=== PATIENT | female | born 1980 | race Caucasian/White ===

== ENCOUNTER 2018-06-13 02:54 | Emergency (ER) | payer OTHER ==
[~2018-06-13] VITALS: Ht 167.6 cm; Wt 95.3 kg
--- NOTE | 2018-06-13 03:10 | NUR ---
Pt. A/Ox4, c/o red rash on bilat. lower extremeties/lower back w/ itchiness and discomfort, no difficulty breathing/swallowing, no SOB, no MCCRACKEN, no CP, states she "picked up a mouse from the house"
--- NOTE | 2018-06-13 03:38 | NUR ---
Patient discharged to home in stable conditon. Written and verbal after care instructions given. Patient verbalizes understanding of instructions. Prescription given for abx treatment, VSS, no acute distress, pt. ambulated out of ED
[2018-06-13 03:45] VITALS: BP 118/86
[2018-06-13] MEDS: SULFAMETH/TRIMETH 800/160 MG TABLET PO ONE (03:46)
== END 2018-06-13 03:47 | disposition home or self-care (01) ==
LOC: ER 02:55
DX: S80.862A Insect bite (nonvenomous), left lower leg, initial encounter (principal); S40.861A Insect bite (nonvenomous) of right upper arm, initial encounter; S30.860A Insect bite (nonvenomous) of lower back and pelvis, initial encounter; L08.9 Local infection of the skin and subcutaneous tissue, unspecified; J45.909 Unspecified asthma, uncomplicated; F17.200 Nicotine dependence, unspecified, uncomplicated; Z88.5 Allergy status to narcotic agent; Z88.8 Allergy status to other drugs, medicaments and biological substances; W57.XXXA Bitten or stung by nonvenomous insect and other nonvenomous arthropods, initial encounter; Y93.89 Activity, other specified; Y92.89 Other specified places as the place of occurrence of the external cause; Y99.8 Other external cause status
CPT/HCPCS: A4663

== ENCOUNTER 2018-06-28 18:20 | Emergency (ER) | payer OTHER ==
[~2018-06-28] VITALS: Ht 170.2 cm; Wt 121.1 kg
[2018-06-28] MEDS ORDERED: TDAP DIPH,PERTUSS,TET VAC/PF 0.5 ML DISP.SYRIN IM ONE ×2 (19:00→19:16)
--- NOTE | 2018-06-28 20:04 | NUR ---
Patient discharged to home in stable conditon. Written and verbal after care instructions given. Patient verbalizes understanding of instructions. Pt. d/c w/ prescriptions per MD order, all belongings w/ pt., left w/ relative
== END 2018-06-28 20:06 | disposition home or self-care (01) ==
LOC: ER 18:22
DX: S80.862A Insect bite (nonvenomous), left lower leg, initial encounter (principal); L08.9 Local infection of the skin and subcutaneous tissue, unspecified; M79.604 Pain in right leg; L25.9 Unspecified contact dermatitis, unspecified cause; J45.909 Unspecified asthma, uncomplicated; F17.200 Nicotine dependence, unspecified, uncomplicated; Z88.5 Allergy status to narcotic agent; Z88.8 Allergy status to other drugs, medicaments and biological substances; W57.XXXA Bitten or stung by nonvenomous insect and other nonvenomous arthropods, initial encounter; Y93.89 Activity, other specified; Y92.89 Other specified places as the place of occurrence of the external cause; Y99.8 Other external cause status
CPT/HCPCS: 73590; 90715; A4663

== ENCOUNTER 2020-03-20 09:16 | Emergency (ER) | payer OTHER ==
[~2020-03-20] VITALS: Ht 170.2 cm; Wt 108.9 kg
--- NOTE | 2020-03-20 09:30 | NUR ---
Dr. Rivera at bedside for MSE
--- NOTE | 2020-03-20 09:40 | NUR ---
Patient discharged to home in stable condition. Written and verbal after care instructions given. Patient verbalizes understanding of instructions. Stressed follow up or return to ER for worsening s/s. Patient ambulated out of ED with steady gait. NAD noted.
[2020-03-20 09:41] VITALS: BP 122/71
== END 2020-03-20 09:40 | disposition home or self-care (01) ==
LOC: ER 09:16
DX: H66.002 Acute suppurative otitis media without spontaneous rupture of ear drum, left ear (principal); F12.20 Cannabis dependence, uncomplicated; F17.290 Nicotine dependence, other tobacco product, uncomplicated; Z88.6 Allergy status to analgesic agent; Z88.8 Allergy status to other drugs, medicaments and biological substances; J45.909 Unspecified asthma, uncomplicated
CPT/HCPCS: A4663

== ENCOUNTER 2020-09-02 11:00 | Emergency (ER) | payer OTHER ==
[~2020-09-02] VITALS: Ht 170.2 cm; Wt 95.3 kg
--- NOTE | 2020-09-02 11:13 | NUR ---
Female [employer] records clerk accompanied female patient for (Dr Gamble).
[2020-09-02 11:17] LABS: *BILIRUBIN,URIN NEGATIVE (NEGATIVE); *BLOOD, URINE NEGATIVE (NEGATIVE); *CLARITY,URINE CLEAR (CLEAR); *COLOR,URINE YELLOW (YELLOW); *KETONES,URINE NEGATIVE (NEGATIVE); *URINE HCG, QUAL NEG (NEGATIVE); *UROBILINOGEN,URINE 0.2 E.U./dl (NORMAL); LEUKOCYTE ESTERASE ,URINE NEGATIVE (NEGATIVE); NITRITE, URINE NEGATIVE (NEGATIVE); PH,URINE 6.5 (5.0-8.0); UGLUCOSE NEGATIVE (NEGATIVE)
[2020-09-02 11:32] VITALS: BP 135/63
--- NOTE | 2020-09-02 11:32 | NUR ---
Patient discharged to home in stable condition. Written and verbal after care instructions given. Patient verbalizes understanding of instructions. Stressed follow up or return to ER for worsening s/s.
== END 2020-09-02 11:32 | disposition home or self-care (01) ==
LOC: ER 11:01
DX: Z03.823 Encounter for observation for suspected inserted (injected) foreign body ruled out (principal); Z88.6 Allergy status to analgesic agent; Z88.8 Allergy status to other drugs, medicaments and biological substances
CPT/HCPCS: 84703; A4663

== ENCOUNTER 2025-04-03 11:04 | Emergency (ER) | payer OTHER ==
[~2025-04-03] VITALS: Ht 165.1 cm; Wt 72.6 kg
[2025-04-03 11:08] VITALS: BP 141/90
[2025-04-03] MEDS: LIDOCAINE HCL 2% 20 ML VIAL TP ONE (11:32)
[2025-04-03 11:55] LABS: CREATININE 0.6 mg/dL (0.6-1.3); SODIUM SERUM 139 mmol/L (136-145); UREA NITROGEN, BLOOD 9 mg/dL (7-18)
[2025-04-03 12:01] LABS: ASPARTATE AMINOTRANSFERASE < 5 U/L (15-37); TOTAL PROTEIN, SERUM 7.8 g/dL (6.4-8.2)
[2025-04-03 12:07] LABS: PLATELET COUNT (AUTO) 437 K/uL (179-408); RED BLOOD CELL COUNT(AUTO) 4.15 MIL/uL (3.63-4.92); RED CELL DISTRIBUTION WIDTH 16.2 % (12.3-17.7); WHITE BLOOD COUNT (AUTO) 8.4 K/uL (3.8-11.8)
[2025-04-03 12:19] LABS: *BILIRUBIN,URIN NEGATIVE (NEGATIVE); *BLOOD, URINE NEGATIVE (NEGATIVE); *CLARITY,URINE CLEAR (CLEAR); *COLOR,URINE YELLOW (YELLOW); *KETONES,URINE NEGATIVE (NEGATIVE); *PROTEIN,URINE NEGATIVE (NEGATIVE); *UROBILINOGEN,URINE 0.2 E.U./dl (NORMAL); LEUKOCYTE ESTERASE ,URINE TRACE (NEGATIVE); NITRITE, URINE NEGATIVE (NEGATIVE); UGLUCOSE NEGATIVE (NEGATIVE)
[2025-04-03] MEDS ORDERED: SULF1TAB48 PO (12:22)
[2025-04-03] MEDS ORDERED: CEFD300C3 PO (12:22)
[2025-04-03 12:25] LABS: SQUAMOUS EPITHELIAL CELL,UR NONE SEEN /HPF (NONE SEEN)
[2025-04-03 12:32] VITALS: BP 136/84; TEMP 209.7; O2SAT 99
[2025-04-03 12:41] LABS: ERYTHROCYTE SEDIMENTATION RATE 88 MM/HR (0-20)
== END 2025-04-03 12:33 | disposition home or self-care (01) ==
LOC: ER 11:04
DX: L02.415 Cutaneous abscess of right lower limb (principal); F17.200 Nicotine dependence, unspecified, uncomplicated; J45.909 Unspecified asthma, uncomplicated; F32.A Depression, unspecified; Z88.5 Allergy status to narcotic agent; Z88.7 Allergy status to serum and vaccine; Z87.39 Personal history of other diseases of the musculoskeletal system and connective tissue
CPT/HCPCS: 36415; 85025; 85651; A4606; A4663